=== PATIENT | female | born 2000 | race Asian ===

== ENCOUNTER 2019-08-19 13:55 | Emergency (ER) | payer OTHER ==
[2019-08-19 16:20] LABS: Rapid Strep Molecular Negative (Negative)
--- NOTE | 2019-08-19 17:11 | ED ---
HPI Febrile Illness - HPI Summary HPI Summary: This patient is a 18 year old female presenting to [facility] with a chief complaint of fever and syncope. Pt stated that she blacked out while showering this 1200. She states when she felt weird she ran out of the shower and passed out on the floor for approximately 90 mins. She reports sore throat, nasal congestion, and body aches. She denies dysuria. She states she is UTD on her vaccines. She states her roommates and boyfriend are also sick. - History of Current Complaint Chief Complaint: EDSyncope Time Seen by Provider: 08/19/19 17:05 Hx Obtained From: Patient Onset/Duration: Started Hours Ago Pain Intensity: 7 Pain Scale Used: 0-10 Numeric - Allergy/Home Medications Allergies/Adverse Reactions: Allergies Allergy/AdvReac Type Severity Reaction Status Date / Time chocolate flavor Allergy Hives Verified 08/19/19 17:03 corn Allergy Hives Verified 08/19/19 17:03 beans Allergy Hives Uncoded 08/19/19 17:03 chili pepper Allergy Hives Uncoded 08/19/19 17:03 dairy products Allergy Anaphylatic Uncoded 08/19/19 17:03 Shock PMH/Surg Hx/FS Hx/Imm Hx Endocrine/Hematology History: Denies: Hx Diabetes Cardiovascular History: Denies: Hx Coronary Artery Disease Infectious Disease History: No Infectious Disease History: Denies: Traveled Outside the [place] in Last 30 Days - Family History Known Family History: Negative: Hypertension - Social History Alcohol Use: None Substance Use Type: Reports: None Smoking Status (MU): Never Smoked Tobacco Review of Systems Positive: Fever, Other - Body Aches Positive: Sore Throat, Nasal Discharge Positive: Syncope All Other Systems Reviewed And Are Negative: Yes Physical Exam - Summary Physical Exam Summary: Constitutional: Well-developed, Well-nourished, Alert. (-) Distressed Skin: Warm, Dry HENT: Normocephalic; Atraumatic., Tonsil Oxidate Bilaterally. Eyes: Conjunctiva normal Neck: Musculoskeletal ROM normal neck. (-) JVD, (-) Stridor, (-) Tracheal deviation Cardio: Rhythm regular, tachycardia, Heart sounds normal; Intact distal pulses; Radial pulses are 2+ and symmetric. (-) Murmur Pulmonary/Chest wall: Effort normal. (-) Respiratory distress, (-) Wheezes, (-) Rales Abd: Soft, (-) tenderness, (-) Distension, (-) Guarding, (-) Rebound Musculoskeletal: (-) Edema Lymph: (-) Cervical adenopathy Neuro: Alert, Oriented x3 Psych: Mood and affect Normal Triage Information Reviewed: Yes Vital Signs On Initial Exam: Initial Vitals Temp Pulse Resp BP Pulse Ox 100 F 116 17 137/79 96 08/19/19 14:03 08/19/19 14:03 08/19/19 14:03 08/19/19 14:03 08/19/19 14:03 Vital Signs Reviewed: Yes Procedures - Sedation Patient Received Moderate/Deep Sedation with Procedure: No Diagnostics - Vital Signs Vital Signs Temp Pulse Resp BP Pulse Ox 08/19/19 15:53 101.6 F 119 20 115/76 96 08/19/19 14:03 100 F 116 17 137/79 96 - Laboratory Lab Results: Lab Results 08/19/19 Range/Units 15:55 Group A Strep Rapid Negative (Negative) Lab Statement: Any lab studies that have been ordered have been reviewed, and results considered in the medical decision making process. Re-Evaluation - Re-Evaluation First Eval Re-Evaluation Time: 18:40 Comment: Patient still tachycardic, slightly over 100 BPM. Offered fluids and lab tests and she declined. Course/Dx - Course Course Of Treatment: Patient is here with symptoms are consistent with a viral syndrome. Patient's had myalgias, sore throat, cough, fever, headache. Patient is overall well-appearing upon arrival with an overall benign exam. Patient was tachycardic and febrile so she was given Motrin, Tylenol, and by mouth fluids. Patient was monitored with mild improvement in her symptoms. Patient is offered IV fluids and labs but she declined. Patient negative rapid flu and strep test. Patient's rate did finally go lower than 100. Patient was discharged. - Diagnoses Provider Diagnoses: Viral syndrome Discharge ED - Sign-Out/Discharge Documenting (check all that apply): Patient Departure - Discharge - Discharge Plan Condition: Stable Disposition: HOME Patient Education Materials: Viral Syndrome (ED) Referrals: [facility] - [place] [facility] [Primary Care Provider] - Additional Instructions: 600 mg of ibuprofen, 1000 mg of tylenol for fever and pain. Take pedialite. Come back if having abdominal pain or shortness of breath. - Billing Disposition and Condition Condition: STABLE Disposition: Home - Attestation Statements Document Initiated by Scribe: Yes Documenting Scribe: Jan Altman Provider For Whom Hansa is Documenting (Include Credential): Merrick Jung MD Scribe Attestation: Jan Dolan, scribed for Merrick Jung MD on 08/20/19 at 1126. Scribe Documentation Reviewed: Yes Provider Attestation: The documentation as recorded by the Jan duarte accurately reflects the service I personally performed and the decisions made by , Merrick Jung MD Status of Scribe Document: Viewed
[2019-08-19] MEDS ORDERED: Ibuprofen TAB* 600 MG PO ONE (17:13)
[2019-08-19] MEDS ORDERED: Acetaminophen TAB* 325 MG PO ONE (17:13)
[2019-08-19 18:20] LABS: Influenza A Molecular NEGATIVE (Negative); Influenza B Molecular NEGATIVE (Negative)
[2019-08-19 18:59] VITALS: BP 113/67
== END 2019-08-19 18:57 | disposition home or self-care (01) ==
LOC: ED 13:55
DX: B34.9 Viral infection, unspecified (principal)
CPT/HCPCS: 87651; 93005; 99282; A9270-GY

== ENCOUNTER 2019-12-16 11:55 | Emergency (ER) | payer OTHER ==
[2019-12-16 14:12] VITALS: BP 106/65
--- NOTE | 2019-12-17 08:59 | ED ---
Head Injury - HPI Summary HPI Summary: This patient is a 19-year-old female presenting to the ED with concern for a concussion. Patient was sent in from [facility]. States that the past few days, she has been a challenging practice and fell onto her head. Denies LOC. She was endorsing some headache, fatigue and some posterior cervical spine tenderness. She denies any nausea, vomiting, bilateral upper or lower extremity tingling. Denies any shuffling gait. Denies any headache at this time, however she had this over the past day and a half. Patient states she feels fatigued and has sensitivity to the light. Remote history of concussion as a child. Denies confusion, memory loss, visual changes. Denies the use of blood thinners. - History Of Current Complaint Chief Complaint: EDHeadInjury Stated Complaint: HEAD INJURY PER PT Time Seen by Provider: 12/16/19 13:01 Hx Obtained From: Patient Onset/Duration: Started Days Ago Onset of Pain: Days Severity Currently: Mild Severity Initially: Mild Pain Intensity: 0 Pain Scale Used: 0-10 Numeric Character: Throbbing Associated Signs And Symptoms: Negative - Risk Factors SDH Risk Factor: Negative - Allergies/Home Medications Allergies/Adverse Reactions: Allergies Allergy/AdvReac Type Severity Reaction Status Date / Time chocolate flavor Allergy Hives Verified 12/16/19 12:04 corn Allergy Hives Verified 12/16/19 12:04 beans Allergy Hives Uncoded 08/19/19 17:03 chili pepper Allergy Hives Uncoded 08/19/19 17:03 dairy products Allergy Anaphylatic Uncoded 08/19/19 17:03 Shock seafood Allergy Anaphylatic Uncoded 12/16/19 12:04 Shock Home Medications: Home Medications NK [No Home Medications Reported] 12/16/19 [History Confirmed 12/16/19] PMH/Surg Hx/FS Hx/Imm Hx Previously Healthy: Yes Endocrine/Hematology History: Denies: Hx Diabetes Cardiovascular History: Denies: Hx Coronary Artery Disease - Immunization History Hx Pertussis Vaccination: No Immunizations Up to Date: Yes Infectious Disease History: No Infectious Disease History: Denies: Traveled Outside the [place] in Last 30 Days - Family History Known Family History: Negative: Hypertension - Social History Occupation: Unemployed, Student Lives: Dormitory/Roommates Alcohol Use: None Hx Substance Use: No Substance Use Type: Reports: None Hx Tobacco Use: No Smoking Status (MU): Never Smoked Tobacco Review of Systems Negative: Fever, Chills, Fatigue, Skin Diaphoresis Negative: Palpitations, Chest Pain Negative: Shortness Of Breath, Cough Genitourinary: Negative Positive: no symptoms reported, see HPI Negative: Arthralgia, Myalgia Negative: Rash, Bruising Neurological/Mental Status: Negative Positive: Headache. Negative: Weakness, Paresthesia, Numbness, Syncope, Slurred Speech Negative: Anxious, Depressed All Other Systems Reviewed And Are Negative: Yes Physical Exam Triage Information Reviewed: Yes Vital Signs On Initial Exam: Initial Vitals Temp Pulse Resp BP Pulse Ox 97.6 F 72 16 128/75 98 12/16/19 12:01 12/16/19 12:01 12/16/19 12:01 12/16/19 12:12/16/19 12:01 Vital Signs Reviewed: Yes Appearance: Positive: Well-Appearing, Well-Nourished Skin: Positive: Warm, Skin Color Reflects Adequate Perfusion Head/Face: Positive: Normal Head/Face Inspection Eyes: Positive: EOMI, KRISTIE, Conjunctiva Clear Neck: Positive: Supple, No Lymphadenopathy Respiratory/Lung Sounds: Positive: Clear to Auscultation, Breath Sounds Present Cardiovascular: Positive: RRR, Pulses are Symmetrical in both Upper and Lower Extremities Musculoskeletal: Positive: Normal, Strength/ROM Intact Neurological: Positive: Sensory/Motor Intact, Alert, Oriented to Person Place, Time, CN Intact II-III, Normal Gait, Speech Normal Psychiatric: Positive: Normal, Affect/Mood Appropriate Procedures - Sedation Patient Received Moderate/Deep Sedation with Procedure: No Diagnostics - Vital Signs Vital Signs Temp Pulse Resp BP Pulse Ox 12/16/19 14:11 98.3 F 69 16 106/65 97 12/16/19 12:01 97.6 F 72 16 128/75 98 - Laboratory Lab Statement: Any lab studies that have been ordered have been reviewed, and results considered in the medical decision making process. Head Injury Course/Dx Course Of Treatment: GCS score >15. No suspected open or depressed skull fx, no sign of basal skull fx, no hemotympanum, raccoon eyes, Battles sign, CSF sushant -/rhinorrhea, no emesis after injury, age <64yo, no amnesia greater than 30 minutes prior to trauma. Complete neuro exam completed and WNL. Normal head/ face inspection with no cephalohematoma. Reflexes intact. EOMI, KRISTIE, visual acuity intact. No obvious confusion or memory loss per patient and family. MMSE OK. Patient oriented to person, place and date. No obvious deformity or signs of trauma. Finger to nose, heel to toe OK. Speech normal, facial symmetry , normal gait, CN II-III intact. Patient denies LOC. ROM, strength, reflexes in upper and lower extremity intact, sensation intact. Ambulating well with steady gait. Currently denies any COOK, visual changes. Endorsing feeling somewhat fatigued with sensitivity to light. Chin to chest without discomfort to the posterior cervical spine. Patient likely has concussion based on symptoms. At this time, CT brain is not indicated as sxs have been improving. Patient discharged with return precautions and post-concussive symptoms explained to patient. Patient agrees to follow up and return if needed. Will f /u with [facility] in a few days. Brain rest instructions given. - Diagnoses Differential Diagnosis/HQI/PQRI: Concussion With LOC, Concussion Without LOC, Contusion Provider Diagnoses: Concussion Discharge ED - Sign-Out/Discharge Documenting (check all that apply): Patient Departure - Discharge Plan Condition: Stable Disposition: HOME Patient Education Materials: Sports Concussion (ED) Forms: *Physical Education Release, *School Release Referrals: [facility] - [place] [Primary Care Provider] - 2 Days () Additional Instructions: Rest is very important after a concussion because it helps the brain to heal. Ignoring your symptoms and trying to tough it out often makes symptoms worse. Be patient because healing takes time. Only when your symptoms have reduced significantly, in consultation with your health manager urgent care, should you slowly and gradually return to your daily activities, such as work or school. If your symptoms come back or you get new symptoms as you become more active, this is a sign that you are pushing yourself too hard. Stop these activities and take more time to rest and recover. As the days go by, you can expect to gradually feel better. Getting Better: Tips Get plenty of sleep at night, and rest during the day. Avoid activities that are physically demanding (e.g., heavy house cleaning, weightlifting/working-out) or require a lot of concentration (e.g., balancing your checkbook). They can make your symptoms worse and slow your recovery. Avoid activities such as contact or recreational sports, that could lead to another concussion. (It is best to avoid roller coasters or other high speed rides that can make your symptoms worse or even cause a concussion.) When your health manager urgent care says you are well enough, return to your normal activities gradually, not all at once. Because your ability to react may be slower after a concussion, ask your health manager urgent care when you can safely drive a car, ride a bike, or operate heavy equipment. Talk with your health manager urgent care about when you can return to work. Ask about how you can help your employer understand what has happened to you. Consider talking with your employer about returning to work gradually and about changing your work activities or schedule until you recover (e.g., work half- days). Take only those drugs that your health manager urgent care has approved. Do not drink alcoholic beverages until your health manager urgent care says you are well enough. Alcohol and other drugs may slow your recovery and put you at risk of further injury. Consult with family members or close friends when making important decisions. Avoid sustained computer use, including computer/video games early in the recovery process. Some people report that flying in airplanes makes their symptoms worse shortly after a concussion. - Billing Disposition and Condition Condition: STABLE Disposition: Home
== END 2019-12-16 14:11 | disposition home or self-care (01) ==
LOC: ED 11:55
DX: S06.0X0A Concussion without loss of consciousness, initial encounter (principal); W19.XXXA Unspecified fall, initial encounter; Y93.79 Activity, other specified sports and athletics; Y92.9 Unspecified place or not applicable; Z91.011 Allergy to milk products; Z91.013 Allergy to seafood; Z91.018 Allergy to other foods
CPT/HCPCS: 99282